=== PATIENT | female | born 1940 | race Caucasian/White ===

== ENCOUNTER → 2017-05-29 | Outpatient (CLI) | payer MEDICARE ==
[~2017-05-29] MED LIST: AMLO1CAP8 PO; ASPI-482 PO; ATEN25TA PO; ATOR10TA60 PO; CALC-178 PO; CALC-98 PO; CETI10TA22 PO; CYCL5TAB PO; FLUT16SP NS; IOHEXOL 180 MG/ML 10 ML VIAL. ONE; LACT1CAP8 PO; MELA3TAB2 PO; OMEG1CAP38 PO; SPIR50TA2 PO; TIZA4TAB PO; VITA1CAP PO; methylPREDNISolone ACETATE 40 MG/ML VIAL. ONE; methylPREDNISolone ACETATE 80 MG/ML VIAL. ONE
--- NOTE | 2017-05-30 01:03 | PAIN ---
DATE OF SERVICE: 05/29/2017 DIAGNOSES: 1. Cervical radiculopathy with cervical degenerative disc disease. 2. Cervical spinal stenosis. HISTORY OF PRESENT ILLNESS: The patient is a 76-year-old female who returns for followup status post cervical epidural steroid injection x 2, last seen on 03/22/2017, her last injection was in January of this year. The patient did very well with about 70-80% improvement. The pain has been returning now to about a 60% level, base of the neck and in the upper extremities little worse on the right than the left with activity, noticeable when driving a car, using her upper extremities over head or repetitive motions such as putting dishes away in a cabinet that is above the level of her shoulder. The patient reports getting dressed is also difficult, putting her arm through a sleeve of a shirt. The patient reports it is aching and dull, cramping, tight, radiating pain, again in both the upper extremities, mostly in the right posterior upper trapezius area into the forearm, mostly posterior into the hands and wrists bilaterally, but worse on the right. The patient reports it is 8 on a scale of 10 at worst, 8 on average, 3 at its least and is 6 today. The patient reports no new motor or sensory deficits, no new changes or complaints. The patient reports it awakens her from sleep very rarely and she usually sleeps up to 6-7 hours at night. If it does awaken her ____ laying on her right side, she can get back to sleep by repositioning. The patient reports no other complaints. PHYSICAL EXAMINATION: VITAL SIGNS: Today, the patient's blood pressure is ____, pulse 52, respirations 16, temperature is 98.3 degrees Fahrenheit, weight is 140 pounds. GENERAL: The patient is awake, alert, oriented, appropriate, very pleasant demeanor. HEENT: Head is normocephalic, atraumatic. Extraocular movements are intact, symmetrical. Oral cavity: Mucous membranes moist and pink, dentition is intact. NECK: Shows anterior throat supple without palpable lymphadenopathy noted. Swallow reflex symmetrical. CHEST: Shows normal on inspection. Breath sounds are clear to auscultation bilaterally. HEART: Shows S1, S2 clear. No murmurs auscultated. ABDOMEN: Soft, nontender, nondistended. No palpable organomegaly. No rebound or guarding demonstrated. BACK: Shows spine grossly midline. Normal-appearing cervical lordotic curvature, thoracic kyphotic and lumbar lordotic curvatures. Cervical paraspinous muscle shows symmetrical on inspection; with palpation shows some [id number] tenderness only with deeper palpation in the middle and lower distribution of the paraspinous musculature, again diffusely without radiation, without trigger points, no tenderness over the spinous processes. The patient has good rotational motion both laterally at about 45 degrees right and left without significant difficulty, but some minor pain reported in the base of the shoulder with right lateral rotation past 45 degrees; full extension, full forward flexion was performed without exacerbation of pain. EXTREMITIES: Upper extremities show deep tendon reflexes 2+ in the biceps and triceps tendons. Motor exam is approximately 4 on a scale of 5 with right civil service worker strength 5/5 on the left. Peripheral pulses are 2+ radial distribution and no peripheral edema is noted bilaterally. Options were discussed with the patient. The patient's old chart was reviewed. Her current medication regimen updated. Current review of systems updated today as well. We will proceed with a cervical epidural steroid injection today, the third in this series. Risks were again discussed including, but not limited to bleeding, infection, possibility of epidural hematoma, subsequent neurologic compromise, dural puncture, headaches, spinal cord and/or nerve damage, side effects of steroid medication, poor results regarding pain control and exposure of fluoroscopy. The patient understands and wished to proceed. The patient will return to clinic in approximately 2 weeks for followup. She was counseled on return appointment, activity level and side effects to be aware of. DIAGNOSES: Cervical radiculopathy, Cervical spinal stenosis, cervical degenerative disk disease. PROCEDURE: Cervical epidural steroid injection, translaminar approach, C6-C7 level using C-arm fluoroscopic guidance under sterile prep and drape using local anesthetic. MEDICATION INJECTED: A total of 120 mg Depo-Medrol plus 5 mL perseverative-free normal saline and 2 mL of Isovue for contrast. CONDITION AT DISCHARGE: Stable. The patient tolerated the procedure well, had no complications. SHERRY LANGSTON MD DR: KENISHA/galilea JOB#: [id number] / [id number]
== END | disposition home or self-care (01) ==
LOC: PNCL 14:04
PROVIDERS: ATTEND Anesthesiology
DX: M50.123 Cervical disc disorder at C6-C7 level with radiculopathy (principal); M48.02 Spinal stenosis, cervical region; Z88.6 Allergy status to analgesic agent; Z88.0 Allergy status to penicillin; Z88.2 Allergy status to sulfonamides
CPT/HCPCS: 62321; J1030; J1040

== ENCOUNTER → 2017-10-10 | Outpatient (CLI) | payer MEDICARE ==
[~2017-10-10] MED LIST changes: -AMLO1CAP8 PO; -ASPI-482 PO; -ATEN25TA PO; -ATOR10TA60 PO; -CALC-178 PO; -CALC-98 PO; -CETI10TA22 PO; -CYCL5TAB PO; -FLUT16SP NS; +IOHEXOL 180 MG/ML 10 ML VIAL.; -IOHEXOL 180 MG/ML 10 ML VIAL. ONE; -LACT1CAP8 PO; -MELA3TAB2 PO; -OMEG1CAP38 PO; -SPIR50TA2 PO; -TIZA4TAB PO; -VITA1CAP PO; +methylPREDNISolone ACETATE 40 MG/ML VIAL.; -methylPREDNISolone ACETATE 40 MG/ML VIAL. ONE; +methylPREDNISolone ACETATE 80 MG/ML VIAL.; -methylPREDNISolone ACETATE 80 MG/ML VIAL. ONE
== END ==
LOC: PNCL 13:25
DX: M51.16 Intervertebral disc disorders with radiculopathy, lumbar region (principal); M96.1 Postlaminectomy syndrome, not elsewhere classified; M48.061 Spinal stenosis, lumbar region without neurogenic claudication; M50.10 Cervical disc disorder with radiculopathy, unspecified cervical region; M48.02 Spinal stenosis, cervical region
CPT/HCPCS: 62323; J1030; J1040; Q9965

== ENCOUNTER → 2017-10-24 | Outpatient (CLI) | payer MEDICARE ==
[~2017-10-24] MED LIST changes: -methylPREDNISolone ACETATE 80 MG/ML VIAL.
== END | disposition home or self-care (01) ==
LOC: PNCL 13:36
DX: M51.16 Intervertebral disc disorders with radiculopathy, lumbar region (principal); M48.061 Spinal stenosis, lumbar region without neurogenic claudication; M50.10 Cervical disc disorder with radiculopathy, unspecified cervical region; M48.02 Spinal stenosis, cervical region; Z88.0 Allergy status to penicillin; Z88.2 Allergy status to sulfonamides; Z88.5 Allergy status to narcotic agent
CPT/HCPCS: 62323; J1030; Q9965

== ENCOUNTER 2018-02-14 12:47 | Emergency (ER) | payer OTHER, MEDICARE ==
[~2018-02-14] VITALS: Ht 167.6 cm; Wt 62.6 kg
[~2018-02-14 12:47] MED LIST changes: +AMLO1CAP8 PO; +ASPI-482 PO; +ATEN25TA PO; +ATOR10TA60 PO; +CALC-178 PO; +CALC-98 PO; +CETI10TA22 PO; +CYCL5TAB PO; +FLUT16SP NS; -IOHEXOL 180 MG/ML 10 ML VIAL.; +LACT1CAP8 PO; +MELA3TAB2 PO; +OMEG1CAP38 PO; +SPIR50TA4 PO; +TIZA4TAB PO; +VITA1CAP PO; -methylPREDNISolone ACETATE 40 MG/ML VIAL.
[2018-02-14 13:24] VITALS: BP 178/78
[2018-02-14] MEDS ORDERED: LIDOCAINE WITH 8.4% SOD BICARB 3 ML DISP.SYRIN. INJ ONE (13:30)
[2018-02-14] MEDS ORDERED: ACETAMINOPHEN 500 MG TABLET PO ONE (13:30)
[2018-02-14] MEDS ORDERED: DIPHTH,PERTUSS(ACELL),TET TOX 0.5 ML DISP.SYRIN. VAX IM ONE (13:30)
--- NOTE | 2018-02-14 13:35 | PHYS DOC ---
Past Medical History Past Medical History: Anxiety, Hypertension, UTI Additional Past Medical Histor: VERTIGO, UETERIN CANCER Past Surgical History: Hysterectomy, Tonsillectomy Additional Past Surgical Histo: CATARACT, Alcohol Use: Occasionally Drug Use: None Adult General Chief Complaint Chief Complaint: LACERATION/AVULSION HPI HPI Patient is a 77 year old female with a history of hypertension, anxiety, who presents today to be evaluated status post falling. 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 She states she had a few seconds of loss of consciousness. Denies any neck pain though she states she has history of chronic neck and back pain. Patient is complaining of left hand pain and forehead laceration. She rates the pain as 8 out of 10. She describes the pain as throbbing worse on range of motion. Review of Systems Review of Systems Constitutional: Denies fever or chills [] Eyes: Denies change in visual acuity, redness, or eye pain [] HENT: Denies nasal congestion or sore throat [] Respiratory: Denies cough or shortness of breath [] Cardiovascular: No additional information not addressed in HPI [] GI: Denies abdominal pain, nausea, vomiting, bloody stools or diarrhea [] : Denies dysuria or hematuria [] Musculoskeletal: Reports left hand pain. Denies back pain or joint pain [] Integument: Reports forehead laceration Neurologic: Reports falling hitting face on the ground. Denies headache, focal weakness or sensory changes [] All other systems were reviewed and found to be within normal limits, except as documented in this note. Current Medications Current Medications Current Medications Medications (Trade) Dose Ordered Sig/Herber Start Time Stop Time Status Last Admin Dose Admin Acetaminophen (Tylenol) 1,000 mg 1X ONCE 02/14/18 13:30 02/14/18 13:31 DC 02/14/18 13:35 1,000 MG Diphtheria/ Tetanus/Acell Pertussis (Boostrix) 0.5 ml ONCE ONCE 02/14/18 13:30 02/14/18 13:31 DC 02/14/18 13:37 0.5 ML Lidocaine/ Epinephrine (Let Topical) 3 ml 1X ONCE 02/14/18 13:45 02/14/18 13:46 DC Lidocaine/Sodium Bicarbonate (Buffered Lidocaine 1%) 3 ml 1X ONCE 02/14/18 13:30 02/14/18 13:31 DC 02/14/18 13:35 3 ML Allergies Allergies Allergies Coded Allergies Type Severity Reaction Last Updated Verified oxycodone Allergy Severe Anxiety 12/15/15 Yes Penicillins Allergy Intermediate Rash, Hives 05/18/15 Yes Sulfa (Sulfonamide Antibiotics) Allergy Intermediate Hives, Rash 05/18/15 Yes codeine Allergy Unknown nausea 12/15/15 Yes Physical Exam Physical Exam Constitutional: Well developed, well nourished, no acute distress, non-toxic appearance. [] HENT: Normocephalic, atraumatic, bilateral external ears normal, oropharynx moist, no oral exudates, nose normal. [] Eyes: PERRLA, EOMI, conjunctiva normal, no discharge. [] Neck: Normal range of motion, no tenderness, supple, no stridor. [] Cardiovascular:Heart rate regular rhythm, no murmur [] Lungs & Thorax: Bilateral breath sounds clear to auscultation [] Abdomen: Bowel sounds normal, soft, no tenderness, no masses, no pulsatile masses. [] Skin: Warm, dry, fore head with a T shaped laceration 10 cm. bruising noted on the nose exterior aspect, no nosebleeding. Back: No tenderness, no CVA tenderness. [] Extremities: Left hand with no obvious deformity. No scaphoid tenderness. Full range of motion to the left hand and fingers. +2 left radial pulse. Cap refill less than 2 seconds the left fingers. Adequate radial, medial, and no sensation to the left hand. Neurologic: Alert and oriented X 3, normal motor function, normal sensory function, no focal deficits noted. Cranial nerves II through XII intact Psychologic: Affect normal, judgement normal, mood normal. [] Current Patient Data Vital Signs Vital Signs Date Time Temp Pulse Resp B/P (MAP) Pulse Ox O2 Delivery O2 Flow Rate FiO2 02/14/18 13:24 66 18 178/78 (111) 98 Room Air 02/14/18 13:06 98.6 98.6 EKG EKG [] Radiology/Procedures Radiology/Procedures []PROCEDURE: CT CERVICAL SPINE WO CONTRAST CT head, maxillofacial region, cervical spine without contrast History: POST FALL, NECK PAIN, forehead laceration after fall Technique: Noncontrast CT imaging was performed of the head, maxillofacial region, and cervical spine. Multiplanar reconstruction images are submitted. Exposure: One or more of the following individualized dose reduction techniques were utilized for this examination: 1. Automated exposure control 2. Adjustment of the mA and/or kV according to patient size 3. Use of iterative reconstruction technique. Head CT Comparison: None Findings: No acute extra-axial or parenchymal hemorrhage is identified. There is no significant intra-axial mass effect, midline shift, or extra-axial fluid collection. The del rosario-white differentiation of the major vascular territories is preserved. The ventricles, sulci, and cisterns are within normal limits in size and configuration. The mastoid air cells and the visualized paranasal sinuses are aerated. There is no significant focal calvarial abnormality. Impression: 1. No acute intracranial abnormality is identified. Cervical spine CT Comparison: None Findings: There are old fractures versus developmental nonfusion of the anterior and posterior arch of C1 centrally. There is mild reversal of the lordotic curvature centered about C5. There is advanced degenerative disc disease at C5-6 and C6-7, to lesser degree at C7-T1, C4-5, C3-C4. There is grade 1 anterior spondylolisthesis at C3-C4, C4-5, C7-T1, and minimal posterior subluxation C5 relative to C6. Cervical vertebral body stature is preserved. There is calcification of the transverse ligament of C1. Atlantoaxial distance is within normal limits. No acute cervical spine fracture is identified. There are disc osteophyte complexes most notable C4-5, C5-6, C6-7. There is estimated canal stenosis at C5-C6 on the order of 7-8 mm with a greater degree of right lateral recess stenosis, central canal stenosis at C6-7 estimated about 6 to 7 mm, lesser degree of spinal stenosis at C4-5, and likely minimally at C3-C4. There is multilevel cervical facet and uncovertebral degenerative change contributing to multilevel neural foramina compromise, more significant narrowing right greater than left at C3-C4, on the right at C4-C5, bilaterally at C5-6, left greater than right at C6-7, lesser degree of narrowing on the left at C7-T1. Impression: 1. No acute cervical spine fracture is identified. There are old fractures versus developmental nonfusion of the anterior and posterior arch of C1 centrally. 2. There is multilevel cervical degenerative disc disease and spondylosis as well as spinal stenosis greatest at C6-7 and C5-C6. There is also multilevel cervical neural foramina compromise due to facet and uncovertebral degenerative change. Maxillofacial CT: FINDINGS: No acute maxillofacial fracture is identified. There is near complete opacification of the right sphenoid sinus. Remainder of paranasal sinuses are aerated. There is left reynold bullosa. IMPRESSION: 1. No acute maxillofacial fracture is identified. 2. There is near complete opacification of the right sphenoid sinus. Electronically signed by: Ranulfo Leger MD (02/14/2018 2:44 PM) [id number] DICTATED and SIGNED BY: RANULFO LEGER MD DATE: 02/14/18 1426 PROCEDURE: HAND LEFT 3V ADDENDUM Left hand-addendum, 02/14/2018: The title of this report was mistakenly transcribed as a right hand. This examination was actually of the left hand. Electronically signed by: Scotty Nguyen MD (02/14/2018 2:04 PM) [facility] DICTATED AND SIGNED BY: SCOTTY NGUYEN MD DATE: 02/14/18 1403 CC: JESSICA HOLLEY ROSE APRN ~ Right hand, 3 views, 02/14/2018: HISTORY: Fall, pain to right hand There is moderate patchy bony demineralization. Scattered degenerative changes are present, most severe at the first CMC joint level. Chondrocalcinosis is present at the wrist. There are additional periarticular calcifications at the third and fifth MCP joint levels. No acute fracture or dislocation is identified. IMPRESSION: 1. Demineralization. 2. Degenerative change. 3. No acute bony abnormality is detected. Electronically signed by: Scotty Nguyen MD (02/14/2018 1:53 PM) [facility] DICTATED and SIGNED BY: SCOTTY NGUYEN MD DATE: 02/14/18 1351 Laceration/Wound Repair Wound Location: Forehead laceration Wound's Depth, Shape: T Wound Length (cm): Approximately 10 cm Wound Explored: clean Irrigated w/ Saline (ccs): 30 Betadine Prep?: Y Anesthesia: 1% buffered lidocaine Volume Anesthetic (ccs): 3 mL Wound Repaired With: Dissolvable gut Suture Size/Type: 6/interrupted sutures Number of Sutures: 19 Progress : Wound was left open to air Course & Med Decision Making Course & Med Decision Making Pertinent Labs and Imaging studies reviewed. (See chart for details) This is a 77-year-old female patient presenting to the ED today to be evaluated status post falling. Patient tripped and fell face forward, reports loss of consciousness for a few seconds. CT of the head, maxillary facial, cervical spine and negative for any acute findings. Left hand x-rays negative for any acute findings. Patient's laceration to the forehead was closed by me as noted in procedures. Wound care instructions and return precautions provided. Velcro splint applied to the left wrist by the agriscience technology instructor, neurovascular exam is intact. Ice elevation encouraged. Given prescription Voltaren cream and Tylenol for pain. Tetanus was updated. Dragon Disclaimer Dragon Disclaimer This electronic medical record was generated, in whole or in part, using a voice recognition dictation system. Departure Departure Impression: Primary Impression: Fall from standing Additional Impressions: Forehead contusion Contusion, nose Forehead laceration DJD (degenerative joint disease) of wrist Disposition: HOME, SELF-CARE Condition: STABLE Referrals: JESSICA HOLLEY (PCP) follow up next week Patient Instructions: Contusion, [id number], Fall Prevention and Home Safety , Laceration Care, Adult Additional Instructions: You were evaluated in the emergency room area just CT of the head, face and neck were negative for any acute findings. Your left hand x-ray was negative for any acute findings. You have arthritis to the left wrist/hand. Please wear the Velcro splint provided as tolerated. Scripts Diclofenac Sodium (VOLTAREN) 100 Gm Gel..gram. 1 GM TP QID, #100 GM 2 Refills Prov: MUTUNGACOURTNEY [employer]P [employer] 02/14/18 Acetaminophen With Codeine (TYLENOL WITH CODEINE #3 TABLET) 1 Each Tablet 1 TAB PO PRN Q6HRS PRN for PAIN, #14 TAB Prov: MUTUNGA,COURTNEY [employer] 02/14/18 Problem Qualifiers Primary Impression: Fall from standing Encounter type: initial encounter Qualified Codes: W19.XXXA - Unspecified fall, initial encounter Additional Impressions: Forehead contusion Encounter type: initial encounter Qualified Codes: S00.83XA - Contusion of other part of head, initial encounter Contusion, nose Encounter type: initial encounter Qualified Codes: S00.33XA - Contusion of nose, initial encounter Forehead laceration Encounter type: initial encounter Qualified Codes: S01.81XA - Laceration without foreign body of other part of head, initial encounter 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
[2018-02-14] MEDS ORDERED: LIDOCAINE/EPI/TETRACAINE TOPICAL GEL 3 ML. TP ONE (13:45)
--- NOTE | 2018-02-14 13:56 | RAD ---
Right hand, 3 views, 02/14/2018: HISTORY: Fall, pain to right hand There is moderate patchy bony demineralization. Scattered degenerative changes are present, most severe at the first CMC joint level. Chondrocalcinosis is present at the wrist. There are additional periarticular calcifications at the third and fifth MCP joint levels. No acute fracture or dislocation is identified. IMPRESSION: 1. Demineralization. 2. Degenerative change. 3. No acute bony abnormality is detected. Electronically signed by: Scotty Nguyen MD (02/14/2018 1:53 PM) [facility]
--- NOTE | 2018-02-14 14:47 | RAD ---
CT head, maxillofacial region, cervical spine without contrast History: POST FALL, NECK PAIN, forehead laceration after fall Technique: Noncontrast CT imaging was performed of the head, maxillofacial region, and cervical spine. Multiplanar reconstruction images are submitted. Exposure: One or more of the following individualized dose reduction techniques were utilized for this examination: 1. Automated exposure control 2. Adjustment of the mA and/or kV according to patient size 3. Use of iterative reconstruction technique. Head CT Comparison: None Findings: No acute extra-axial or parenchymal hemorrhage is identified. There is no significant intra-axial mass effect, midline shift, or extra-axial fluid collection. The del rosario-white differentiation of the major vascular territories is preserved. The ventricles, sulci, and cisterns are within normal limits in size and configuration. The mastoid air cells and the visualized paranasal sinuses are aerated. There is no significant focal calvarial abnormality. Impression: 1. No acute intracranial abnormality is identified. Cervical spine CT Comparison: None Findings: There are old fractures versus developmental nonfusion of the anterior and posterior arch of C1 centrally. There is mild reversal of the lordotic curvature centered about C5. There is advanced degenerative disc disease at C5-6 and C6-7, to lesser degree at C7-T1, C4-5, C3-C4. There is grade 1 anterior spondylolisthesis at C3-C4, C4-5, C7-T1, and minimal posterior subluxation C5 relative to C6. Cervical vertebral body stature is preserved. There is calcification of the transverse ligament of C1. Atlantoaxial distance is within normal limits. No acute cervical spine fracture is identified. There are disc osteophyte complexes most notable C4-5, C5-6, C6-7. There is estimated canal stenosis at C5-C6 on the order of 7-8 mm with a greater degree of right lateral recess stenosis, central canal stenosis at C6-7 estimated about 6 to 7 mm, lesser degree of spinal stenosis at C4-5, and likely minimally at C3-C4. There is multilevel cervical facet and uncovertebral degenerative change contributing to multilevel neural foramina compromise, more significant narrowing right greater than left at C3-C4, on the right at C4-C5, bilaterally at C5-6, left greater than right at C6-7, lesser degree of narrowing on the left at C7-T1. Impression: 1. No acute cervical spine fracture is identified. There are old fractures versus developmental nonfusion of the anterior and posterior arch of C1 centrally. 2. There is multilevel cervical degenerative disc disease and spondylosis as well as spinal stenosis greatest at C6-7 and C5-C6. There is also multilevel cervical neural foramina compromise due to facet and uncovertebral degenerative change. Maxillofacial CT: FINDINGS: No acute maxillofacial fracture is identified. There is near complete opacification of the right sphenoid sinus. Remainder of paranasal sinuses are aerated. There is left reynold bullosa. IMPRESSION: 1. No acute maxillofacial fracture is identified. 2. There is near complete opacification of the right sphenoid sinus. Electronically signed by: Yaw Myrick MD (02/14/2018 2:44 PM) [id number]
[2018-02-14] MEDS ORDERED: ACET-704 PO (15:15)
[2018-02-14] MEDS ORDERED: DICL100G18 TP (15:15)
== END 2018-02-14 15:30 | disposition home or self-care (01) ==
LOC: ER 12:47
DX: S01.81XA Laceration without foreign body of other part of head, initial encounter (principal); S00.33XA Contusion of nose, initial encounter; M19.032 Primary osteoarthritis, left wrist; F41.9 Anxiety disorder, unspecified; I10 Essential (primary) hypertension; Z90.49 Acquired absence of other specified parts of digestive tract; Z98.890 Other specified postprocedural states; Z88.5 Allergy status to narcotic agent; Z88.0 Allergy status to penicillin; Z88.2 Allergy status to sulfonamides; W01.0XXA Fall on same level from slipping, tripping and stumbling without subsequent striking against object, initial encounter; Y93.01 Activity, walking, marching and hiking; Y92.219 Unspecified school as the place of occurrence of the external cause; Y99.8 Other external cause status
CPT/HCPCS: 12004; 70450; 70486; 72125; 73130; 90471; 90715; 99284-25

== ENCOUNTER → 2018-05-07 | Outpatient (CLI) | payer MEDICARE ==
[~2018-05-07] MED LIST changes: +ACET-704 PO; +BARIUM SULFATE 105% 1,900 ML SUSP PO ONE; +DICL100G18 TP
--- NOTE | 2018-05-07 10:22 | RAD ---
Examination: BARIUM ENEMA History: PATIENT NOT PREPPED. ONLY KUB PERFORMED, PATIENT TO RESCHEDULE BARIUM ENEMA Comparison/Correlation: None Findings: Frontal view of the abdomen was obtained. Scattered moderate quantity of stool is present. No suspicious abdominal calcifications. No obstruction. Bony structures are unremarkable for age. Impression: Scattered retained stool in the colon. Barium enema exam was deferred as patient was not prepped. Electronically signed by: Lincoln Alejandra MD (05/07/2018 10:18 AM) [facility]
== END | disposition home or self-care (01) ==
LOC: RAD 08:27
PROVIDERS: ATTEND Internal Medicine Gastroenterology
DX: Z53.9 Procedure and treatment not carried out, unspecified reason (principal); K59.09 Other constipation
CPT/HCPCS: 74270

== ENCOUNTER → 2018-05-14 | Outpatient (CLI) | payer MEDICARE ==
--- NOTE | 2018-05-14 09:52 | RAD ---
Barium enema, 05/14/2018: History: Incomplete colonoscopy, diverticulosis The preliminary abdominal image demonstrates a nonspecific gas pattern. Aortoiliac calcific plaquing is present. There is no evidence of organomegaly. Moderate multilevel degenerative change is present in the spine. The colon was filled with barium in a retrograde manner. 4.3 minutes of fluoroscopy time was utilized. 17 fluoroscopic spot images were recorded. Several sigmoid diverticula are present. The sigmoid colon demonstrated mild spasticity. Smooth sigmoid narrowing compatible with muscular hypertrophy related to the diverticulitis is noted. No intraluminal mass is seen. There was no significant colonic reflux into the terminal ileum. A postevacuation view demonstrates good colonic emptying. IMPRESSION: 1. Mild smooth sigmoid narrowing related to mild sigmoid diverticulosis. 2. Mild sigmoid spasticity. 3. The barium enema is otherwise unremarkable.
== END | disposition home or self-care (01) ==
LOC: RAD 08:42
PROVIDERS: ATTEND Internal Medicine Gastroenterology
DX: Z53.9 Procedure and treatment not carried out, unspecified reason (principal); K57.30 Diverticulosis of large intestine without perforation or abscess without bleeding
CPT/HCPCS: 74270